=== PATIENT | female | born 1965 ===

== ENCOUNTER 2017-06-18 08:46 | Emergency (ER) | payer OTHER ==
[2017-06-18 09:17] VITALS: O2SAT 99
--- NOTE | 2017-06-18 09:48 | C.PDOC ---
History Of Present Illness 51 year old female presents to the ED for evaluation s/p mouse bite to right 1st toe sustained this morning. Patient states she stepped out of bed trying to avoid sticker mouse trap but stepped onto the trap. The mouse was on the trap and bit patient's toe. Patient denies initial bleeding. but notes she squeezed the toe and had output of blood. Patient soaked the area in alcohol prior to arrival and is currently asymptomatic in the ED. SP MOUSE BITE R 1 TOE THIS MORNING. PS STEPPED OUT OF BED TRYING TO AVOID STICKER MOUSE TRAP BUT STEPPED ONTO TRAP, MOUSE WAS ON TRAP AND BIT HER TOE. NO INITIAL BLEEDING. 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 CURRENTLY ASYMPT EXAM NAD EXT R TOE NO SWELL, VISUALIZED BITE MONIQUE. NO DEFORM SKIN NO ERYTHEMA, BLEEDING Time Seen by Provider: 06/18/17 09:39 Chief Complaint (Nursing): Bite History Per: Patient History/Exam Limitations: no limitations Onset/Duration Of Symptoms: Hrs Current Symptoms Are (Timing): Better Location Of Injury: Right: Foot (1st toe ) Quality Of Symptoms: denies: Draining Additional History Per: Patient Past Medical History Reviewed: Historical Data, Nursing Documentation, Vital Signs Vital Signs: Last Vital Signs Temp 98.0 F 06/18/17 10:30 Pulse 68 06/18/17 10:30 Resp 18 06/18/17 10:30 BP 113/73 06/18/17 10:30 Pulse Ox 99 06/18/17 10:30 - Medical History PMH: No Chronic Diseases Surgical History: No Surg Hx Family History: States: Unknown Family Hx - Social History Hx Alcohol Use: No Hx Substance Use: No - Immunization History Hx Tetanus Toxoid Vaccination: No Hx Influenza Vaccination: No Hx Pneumococcal Vaccination: No Review Of Systems Skin: Positive for: Other (mouse bite to right 1st toe ) Physical Exam - Physical Exam Appears: Non-toxic, No Acute Distress Skin: Normal Color, Warm, Dry, No Other (erythema or bleeding to right 1st toe ) Extremity: Normal ROM, Capillary Refill (less than 2 seconds ), No Deformity, No Swelling (to right 1st toe ), Other (visualized bite monique to right 1st toe ) Neurological/Psych: Oriented x3, Normal Speech, Normal Cognition Gait: Steady ED Course And Treatment O2 Sat by Pulse Oximetry: 99 Disposition Counseled Patient/Family Regarding: Diagnosis, Need For Followup, Rx Given - Disposition Referrals: YOUR,PMD [Other] Disposition: HOME/ ROUTINE Disposition Time: 10:12 Condition: GOOD Additional Instructions: A pesar de la creencia comn, ninguna mordedura de roedores en [place] [facility] tenido ольга resultado la transmisin de la mikala. Sin embargo, jessee persona mordida por jessee rata debe buscar un profesional mdico. Los sntomas comunes de jessee mordedura de rata son dolor, enrojecimiento, hinchazn alrededor de la picadura y, si se produce jessee infeccin secundaria, jessee herida llorosa y llena de pus. Prescriptions: Amoxicillin/Clavulanate [Augmentin 875 MG-125 MG] 1 tab PO BID #10 tab Instructions: Animal Bite (ED) Forms: [employer] (Tajik) - Clinical Impression Clinical Impression: Bitten by mouse
[2017-06-18 10:37] VITALS: BP 113/73; PULSE 68; RESP 18; TEMP 98
== END 2017-06-18 10:30 | disposition home or self-care (01) ==
LOC: C.ER 08:46
DX: S91.151A Open bite of right great toe without damage to nail, initial encounter (principal); W53.01XA Bitten by mouse, initial encounter